=== PATIENT | female | born 1980 | race Two or more races ===

== ENCOUNTER 2020-06-09 13:29 | Emergency (ER) | payer OTHER ==
[~2020-06-09] VITALS: Ht 160 cm; Wt 70.8 kg
[2020-06-09] MEDS ORDERED: TOBRADEX EYE DR10 ML OP (17:02)
[2020-06-09] MEDS ORDERED: OCUFLOX5 ML OP (17:02)
[2020-06-09] MEDS ORDERED: EYE ALLERGY REL15 ML OP (17:02)
== END 2020-06-09 17:09 | disposition home or self-care (01) ==
LOC: ER 13:29
DX: H10.89 Other conjunctivitis (principal)

== ENCOUNTER 2020-12-23 15:01 | Emergency (ER) | payer OTHER ==
[~2020-12-23] VITALS: Ht 162.6 cm; Wt 72.1 kg
[~2020-12-23 15:01] MED LIST: EYE ALLERGY REL15 ML OP; OCUFLOX5 ML OP; TOBRADEX EYE DR10 ML OP
== END 2020-12-23 19:49 | disposition home or self-care (01) ==
LOC: ER 15:01
DX: N93.8 Other specified abnormal uterine and vaginal bleeding (principal)

== ENCOUNTER 2022-11-20 03:53 | Emergency (ER) | payer OTHER ==
[~2022-11-20] VITALS: Ht 152.4 cm; Wt 63.5 kg
== END 2022-11-20 04:43 | disposition home or self-care (01) ==
LOC: ER 03:53
DX: S50.871A Other superficial bite of right forearm, initial encounter (principal); W55.01XA Bitten by cat, initial encounter; Y93.89 Activity, other specified; Y92.018 Other place in single-family (private) house as the place of occurrence of the external cause; Y99.9 Unspecified external cause status

== ENCOUNTER → 2024-03-01 | Emergency (ER) | payer OTHER ==
[~2024-03-01] VITALS: Ht 160 cm; Wt 70.3 kg
[~2024-03-01] MED LIST changes: +ACETAMINOPHEN 500 MG GEL..CAP PO ONE
[2024-03-01 19:36] LABS: HEMATOCRIT 24.7 % (36.0-45.00); MEAN CORPUSCULAR HGB CONC 30.3 g/dl (32.0-36.0); PLATELET COUNT 338 K/uL (150-450); RED BLOOD COUNT 3.53 M/uL (4.00-6.00)
[2024-03-01 19:39] LABS: MEAN CORPUSCULAR HEMOGLOBIN 21.2 pg (27.00-32.0); RED CELL DISTRIBUTION WIDTH 24.1 % (11.5-14.5)
[2024-03-01 19:40] LABS: HEMOGLOBIN 7.5 g/dL (12.0-15.00); MEAN CELL VOLUME 69.9 fL (80.00-100.00)
[2024-03-01 19:52] LABS: PH,URINE 6.5 (5.0-8.0); URINE APPEARANCE Clear; URINE BILIRRUBIN Negative (NEGATIVE); URINE BLOOD Negative; URINE COLOR Yellow; URINE GLUCOSE Negative (NEGATIVE); URINE KETONE Negative (NEGATIVE); URINE LEUKOCYTE Negative; URINE NITRATE Negative; URINE PROTEIN Negative (NEGATIVE)
[2024-03-01 19:58] LABS: URINE BACTERIA 609.6 uL (0.0-1933); URINE EPITHELIAL CELLS 17.6 uL (0.0-38.8); URINE RBC 7.7 uL (0.0-20.8); URINE WBC 12.3 uL (0.0-23.2)
[2024-03-01 20:12] LABS: INR 0.98; PARTIAL THROMBOPLASTIN TIME 23.4 SECONDS (22.0-34.0); PROTHROMBIN TIME 10.3 SECONDS (9.0-11.5)
[2024-03-01 20:19] LABS: BILIRUBIN TOTAL 0.38 mg/dL (0.3-1.2); CALCIUM 8.7 mg/dL (8.5-10.1); CREATININE SERUM 0.48 mg/dL (0.55-1.02); GFR 140.5; GLOBULINA 3.6 G/DL (2.4-3.5); POTASSIUM 3.95 mEq/L (3.5-5.1); TOTAL PROTEIN 7.6 gm/dL (6.4-8.2)
[2024-03-02 08:19] LABS: HEMATOCRIT 25.8 % (36.0-45.00); PLATELET COUNT 332 K/uL (150-450); RED BLOOD COUNT 3.73 M/uL (4.00-6.00); RED CELL DISTRIBUTION WIDTH 24.6 % (11.5-14.5)
[2024-03-02 08:27] LABS: MEAN CORPUSCULAR HEMOGLOBIN 20.6 pg (27.00-32.0)
[2024-03-02 08:28] LABS: HEMOGLOBIN 7.7 g/dL (12.0-15.00)
== END | disposition home or self-care (01) ==
LOC: ER 15:35
PROVIDERS: Emergency Medicine
DX: R10.2 Pelvic and perineal pain (principal); D64.9 Anemia, unspecified; N93.8 Other specified abnormal uterine and vaginal bleeding

== ENCOUNTER 2025-01-31 18:44 | Emergency (ER) | payer OTHER ==
[~2025-01-31] VITALS: Ht 162.6 cm; Wt 72.6 kg
[~2025-01-31 18:44] MED LIST changes: -ACETAMINOPHEN 500 MG GEL..CAP PO ONE
[2025-01-31] MEDS ORDERED: VANCOMYCIN HCL 1,000 MG VIAL IV ONE (19:15)
[2025-01-31 19:43] LABS: BASO % 0.6 % (0.1-1.2); EOS # 0.15 (0.04-0.54); EOS % 1.8 % (0.7-7.0); LYMPH # 2.76 (1.18-3.74); LYMPH % 32.7 % (19.3-53.1); MEAN PLATELET VOLUME 10.10 fl (9.4-12.4); MONO # 0.56 (0.24-0.82); MONO % 6.6 % (4.7-12.5); NEUT # 4.89 (1.56-6.13); NEUT % 57.9 % (34.0-71.1); RED CELL DISTRIBUTION WIDTH 13.7 % (11.6-14.4)
[2025-01-31 19:48] LABS: ERYTHROCYTE SEDIMENTATION RATE 21 mm/hr (0-20)
[2025-01-31 20:13] LABS: ALT/SGPT 22.0 U/L (12-78); AST/SGOT 15.0 U/L (15-37); BILIRUBIN TOTAL 0.84 mg/dL (0.3-1.2); BUN CREA RATIO 19.0 (7.0-25.0); CREATININE SERUM 0.54 mg/dL (0.55-1.02); GFR 122.64; GLOBULINA 3.9 G/DL (2.4-3.5); GLUCOSE FASTING 93.0 mg/dL (65-100); OSMOLALITY SERUM 284.0 MOSM/KG (275-295)
[2025-01-31] MEDS ORDERED: BACTRIM DS TAB1 EACH PO (20:51)
== END 2025-01-31 21:52 | disposition home or self-care (01) ==
LOC: ER 18:56
PROVIDERS: General Practice
DX: L02.212 Cutaneous abscess of back [any part, except buttock and flank] (principal)

== ENCOUNTER 2025-02-04 13:30 | Outpatient (CLI) | payer OTHER ==
[~2025-02-04 13:30] MED LIST changes: +BACTRIM DS TAB1 EACH PO
== END 2025-02-04 13:35 | disposition home or self-care (01) ==
LOC: LAB 13:30
PROVIDERS: ATTEND Specialist
DX: L02.91 Cutaneous abscess, unspecified (principal)